=== PATIENT | male | born 1970 | race Caucasian/White ===

== ENCOUNTER 2017-01-14 17:05 | Emergency (ER) | payer SELFPAY ==
[~2017-01-14] VITALS: Ht 170.2 cm; Wt 87.0 kg
[2017-01-14 17:08] VITALS: Ht 170.2 cm; Wt 87.0 kg
[2017-01-14] MEDS ORDERED: ACETAMINOPHEN 325 MG TAB PO ONE (18:00)
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
[2017-01-14] MEDS ORDERED: IBUP-1542 PO (18:33)
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
== END 2017-01-14 18:45 | disposition home or self-care (01) ==
LOC: FTE 17:05
DX: S13.9XXA Sprain of joints and ligaments of unspecified parts of neck, initial encounter (principal); R07.9 Chest pain, unspecified; V49.40XA Driver injured in collision with unspecified motor vehicles in traffic accident, initial encounter
CPT/HCPCS: 71010; 72040; 72100; 93005

== ENCOUNTER → 2018-05-21 | Outpatient (CLI) | payer BC ==
[~2018-05-21] MED LIST: IBUP-1542 PO
== END | disposition home or self-care (01) ==
LOC: LAB 07:43
PROVIDERS: ATTEND Internal Medicine
DX: E11.8 Type 2 diabetes mellitus with unspecified complications (principal); I10 Essential (primary) hypertension
CPT/HCPCS: 80053; 80061; 81001; 81003; 82043; 82652; 83036; 84443; 85025

== ENCOUNTER → 2018-07-05 | Outpatient (CLI) | payer BC | END | disposition home or self-care (01) | LOC: LAB 06:38 | PROVIDERS: ATTEND Internal Medicine | DX: Z11.1 Encounter for screening for respiratory tuberculosis (principal) | CPT/HCPCS: 71046 ==